=== PATIENT | female | born 1940 | race African-American/Black ===

== ENCOUNTER 2021-03-20 17:09 | Observation (INO) ==
[2021-03-20] MEDS ORDERED: NS 0.9% 1000 ml BAG 1,000 ML IV ONE (17:21)
[2021-03-20 17:46] LABS: ABS Lymphocytes 1.4 10^3/ul (1.0-4.8); ABS Monocytes 0.4 10^3/ul (0-0.8); ABS Neutrophils 2.4 10^3/ul (1.5-7.7); Eosinophil % 0.3 %; Hematocrit 37 % (35-47); Hemoglobin 12.5 g/dL (12.0-16.0); Lymphocyte % 34.3 %; Mean Corpuscular HGB Conc 34 g/dL (31-36); Mean Corpuscular Hemoglobin 31 pg (27-31); Mean Corpuscular Volume 92 fL (80-97); Mean Platelet Volume 8.1 fL (7.4-10.4); Nucleated Red Blood Cells % 0.1; Platelet Count 212 10^3/uL (150-450); Red Blood Count 4.03 10^6 /uL (3.70-4.87); Red Cell Distribution Width 14 % (10-15); White Blood Count 4.2 10^3/uL (3.5-10.8)
[2021-03-20 18:03] LABS: ALT 18 U/L (7-52); AST 27 U/L (13-39); Albumin/Globulin Ratio 1.1 (1-3); Alkaline Phosphatase 53 U/L (35-149); Anion Gap 5 mmol/L (2-11); Blood Urea Nitrogen 18 mg/dL (6-24); CO2 Carbon Dioxide 29 mmol/L (22-32); Calcium 9.7 mg/dL (8.6-10.3); Chloride 105 mmol/L (101-111); EGFR African American 79.6 (>60); EGFR Non-African American 65.8 (>60); Globulin 3.7 g/dL (2-4); Glucose 145 mg/dL (70-100); Potassium 3.2 mmol/L (3.5-5.0); Sodium 139 mmol/L (135-145); Total Protein 7.7 g/dL (6.4-8.9)
[2021-03-20] MEDS ORDERED: Potassium Chlor 20 meq TAB.ER PO ONE (19:19)
[2021-03-20] MEDS ORDERED: KCL 20 MEQ/100 ML IVPREMIX 20 MEQ/100 ML BAG IV ONE (19:19)
[2021-03-20 19:53] LABS: Magnesium 2.3 mg/dL (1.9-2.7)
[2021-03-20 20:37] LABS: Urine Appearance Clear; Urine Bilirubin Negative (Negative); Urine Blood Negative (Negative); Urine Color Straw; Urine Glucose Negative (Negative); Urine Ketones Negative (Negative); Urine Nitrite Negative (Negative); Urine Protein Negative (Negative); Urine Specific Gravity 1.009 (1.002-1.030); Urine Urobilinogen Negative (Negative)
[2021-03-20] MEDS ORDERED: Magnesium Hydroxide LIQ 30 ML UDC PO PRN (20:43)
[2021-03-20] MEDS: Enoxaparin 40 MG/0.4 ML SYR SUBCUT SCH (23:46)
[2021-03-21 06:47] LABS: ABS Lymphocytes 1.4 10^3/ul (1.0-4.8); ABS Monocytes 0.4 10^3/ul (0-0.8); ABS Neutrophils 2.7 10^3/ul (1.5-7.7); Eosinophil % 0.2 %; Hematocrit 36 % (35-47); Hemoglobin 12.2 g/dL (12.0-16.0); Lymphocyte % 30.7 %; Mean Corpuscular HGB Conc 34 g/dL (31-36); Mean Corpuscular Hemoglobin 31 pg (27-31); Mean Corpuscular Volume 91 fL (80-97); Mean Platelet Volume 8.1 fL (7.4-10.4); Nucleated Red Blood Cells % 0.3; Platelet Count 189 10^3/uL (150-450); Red Blood Count 3.91 10^6 /uL (3.70-4.87); Red Cell Distribution Width 14 % (10-15); White Blood Count 4.6 10^3/uL (3.5-10.8)
[2021-03-21 07:00] LABS: Calcium 9.2 mg/dL (8.6-10.3); EGFR African American 107.5 (>60); EGFR Non-African American 88.8 (>60); Magnesium 2.2 mg/dL (1.9-2.7)
[2021-03-21] MEDS: Potassium Chlor 20 meq TAB.ER PO SCH (09:05)
[2021-03-21 17:54] LABS: Calcium 9.8 mg/dL (8.6-10.3); EGFR African American 98.6 (>60); EGFR Non-African American 81.5 (>60)
[2021-03-21] MEDS: Enoxaparin 40 MG/0.4 ML SYR SUBCUT SCH (19:52)
[2021-03-22] MEDS: Potassium Chlor 20 meq TAB.ER PO SCH (07:44)
[2021-03-22 12:18] VITALS: BP 112/65
== END 2021-03-22 14:05 | disposition home or self-care (01) ==
LOC: EDBD → ED 17:09 → MEDTELE 17:09
PROVIDERS: ADMIT Pediatrics; ATTEND Hospitalist